=== PATIENT | female | born 1955 | race Caucasian/White ===

== ENCOUNTER → 2017-04-07 | Day surgery (SDC) | payer BC ==
[2017-03-30 07:36] VITALS: Ht 175.3 cm; Wt 95.5 kg
--- NOTE | 2017-04-06 08:56 | History and Physical: Surg Cnt ---
History & Physical Date April 06, 2017. Chief Complaint sinus infections History of Present Illness The patient is a 61 year old female with complaints of chronic sinusitis, left antrochoanal polyp Additional History Hepatic Disease: No Endocrine Disorder: No Kidney Disease: No Hypertension: Yes Heart Disease: No Bleeding Tendencies: No Infectious Diseases: No Allergies Coded Allergies: Adhesives (Verified Allergy, Unknown, RASH, 03/30/17) NO KNOWN DRUG ALLERGIES (Verified Allergy, Unknown, ., 03/30/17) Home Medications Scheduled Fluoxetine (Prozac), 10 MG PO QAM Levothyroxine Sodium (Levothyroxine Sodium), 1 TAB PO QAM Lisinopril (Zestril), 20 MG PO HS Nadolol (Corgard), 80 MG PO QAM Scheduled PRN Tramadol (Ultram), 50 MG PO Q8H PRN for Pain Physical Examination Skin: warm/dry, no rash Eyes: normal inspection, EOMI, sclerae normal ENT: normal ENT inspection, pharynx normal, + pertinent finding (left antochoanal polyp and other polyps) Head: normocephalic, atraumatic Neck: supple, no adenopathy, trachea midline Respiratory/Chest: lungs clear, normal breath sounds, no respiratory distress Cardiovascular: regular rate, rhythm, no edema, no murmur Abdomen / GI: normal bowel sounds, non tender Back: normal inspection Extremities: normal inspection, normal range of motion Neurologic/Psych: no motor/sensory deficits, alert, normal reflexes, oriented x 3 Diagnosis chronic sinusitis, left antrochoanal polyp Plan of Treatment endoscopic sinus surgery
[~2017-04-07] VITALS: Ht 175.3 cm; Wt 95.5 kg
[~2017-04-07] MED LIST: ATROPINE SULFATE 0.1 MG/ML 5ML SYR IV PRN; ATROPINE SULFATE 1MG/2.5ML SYR ONE; BACITRACIN OINT 15 GM TUBE ONE; CEFAZOLIN 2000 MG/60 ML D5W IV SCH; CHECK SCOPOLAMINE PATCH PLACEMENT SCH; DEXAMETHASONE SOD INJ 4 MG/ML VIAL ONE; EpHEDrine SULFATE INJ 50 MG/ML AMP IV PRN; EpHEDrine SULFATE INJ 50 MG/ML AMP ONE; EpINEphrine INJ 1MG/ML AMP 1 MG/ML AMP ONE; FENTANYL CITRATE INJ 50 MCG/1 ML 2 ML VIAL ONE; FLUMAZENIL 0.1 MG/1 ML 10 ML VIAL IV PRN; FLUO10CA48 PO; GELATIN SPONGE 12-7MM ONE; HYDROmorphone INJ 2 MG/ML SYR/VIAL IV PRN; LABETALOL HCL IV 5 MG/ML 20ML IV PRN; LACTATED RINGER'S 1000ML 1,000 ML IV SCH; LEVO50TA6 PO; LIDO 2%/EPINEPHRINE 1:100000 20 ML VIAL INFIL ONE; LIDOCAINE 4% MPF SOAK 5 ML = 1 DOSE TOP ONE; LIDOCAINE HCL 2% 2 ML VIAL (20MG/ML) ONE; LISI-725 PO; MEPERIDINE HCL 25 MG/ML CARP IV PRN; MIDAZOLAM HCL 1 MG/ML 2ML VIAL ONE; NADO80TA PO; NALOXONE HCL 0.4 MG/1 ML VIAL/CARP IV PRN; ONDANSETRON INJ 2 MG/ML 2 ML VIAL IV PRN; ONDANSETRON INJ 2 MG/ML 2 ML VIAL ONE; OXYCODONE/ACETAMINOPHEN 5-325 TAB PO PRN; OXYMETAZOLINE HCL 0.05% NA SPR 15 ML BTL SCH; PHENYLEPHRINE 100MCG/ML 5ML SYR IV PRN; PROPOFOL IV EMULSION 10 MG/ML 20 ML VIAL IV ONE; SCOPOLAMINE 1.5 MG TDSY TD ONE; SODIUM CHLORIDE 0.9% 1000ML 1,000 ML IV SCH; TRAM-10 PO
--- NOTE | 2017-04-07 08:51 | History & Physical Bridge Note ---
H&P Re-Evaluation Bridge Note: I have examined the patient, reviewed the History & Physical and in the interval since the performance of the History & Physical I have noted the following changes of clinical significance: No changes noted
[2017-04-07] MEDS: FENTANYL CITRATE INJ 50 MCG/1 ML 2 ML VIAL IV PRN ×2 (10:43→10:52)
--- NOTE | 2017-04-07 10:43 | Discharge Instructions-SurgCtr ---
Discharge Instructions Date of Service April 07, 2017. Visit Reason for Visit: Chronic Sinusitis, Left Antrochoanal Polyp;Preop Discharge Discharge Diagnosis / Problem: same Discharge Goals Goal(s): Improve disease control Activity Recommendations Activity Limitations: resume your previous activity Anesthesia . Post Anesthesia Instructions: If you have had General Anesthesia or IV Sedation: * Do not drive today. * Resume driving when surgeon permits. * Do not make important decisions or sign legal documents today. * Call surgeon for: 1. Temperature elevations greater than 101 degrees F. 2. Uncontrollable pain. 3. Excessive bleeding. 4. Persistent nausea and vomiting. 5. Medication intolerance (nausea, vomiting or rash). * For nausea and vomiting use only clear liquids such as: tea, soda, bouillon until nausea subsides, then gradually increase diet as tolerated. * If you have any concerns or questions, call your surgeon's office. If physician is unavailable and it is an emergency, call 911 or go to the nearest emergency room. . Instructions / Follow-Up Instructions / Follow-Up ACTIVITY RECOMMENDATIONS: * Being up and around is good, but no strenuous activity, heavy lifting or physical exertion for one week. * Keep your head elevated 30 degrees when lying down or sleeping. * Do not blow your nose for 48 hours, sniff back instead. * Avoid hot showers. OVER THE COUNTER MEDICATIONS: * You may use Tylenol * Avoid aspirin or aspirin containing products, e.g. as they may increase bleeding. SPECIAL CARE INSTRUCTIONS: * Expect to have bloody drainage from your nose and/or down your throat for one to three days. Change drip pad as needed. * Begin irrigating your nose with saline solution today, at least six to ten times per day and sniff back to help remove old clots or crust. * You may experience nasal and facial congestion, pain and pressure, this is normal. * Please call with any significant and/or progressive pain, redness, swelling around the eyes, visual changes, fever of 101.5 degrees F, active bleeding or any problems or concerns. * If active bleeding occurs, spray the nose three times at one minute intervals with Afrin spray and call or cell phone: . If unable to reach the doctor, go to the nearest Emergency Department. Special Diet: * Avoid extremely hot fluids. FOLLOW UP VISIT: Follow-up Visit with Dr. Concepcion If not already scheduled, please call to schedule. Diet Recommendations Home Diet: no limitations Procedures Procedures Performed: Endoscopic Sinus Surgery, Endoscopic Septoplasty, Right & Left Frontal Sinus, Right & Left Maxillary Sinus, Right & Left Total Ethmoidectomies Pending Studies Studies pending at discharge: no Medical Emergencies . Who to Call and When: Medical Emergencies: If at any time you feel your situation is an emergency, please call 911 immediately. . Non-Emergent Contact Non-Emergency issues call your: Primary Care Provider . . "Provider Documentation" section prepared by Ngoc Concepcion. . [place] Drug Monitoring Program Search Results: no issues identified
--- NOTE | 2017-04-07 11:15 | Anesthesia Progress Nt - [facility] ---
Anesthesia Post Op Note Date & Time April 07, 2017 at 11:16 Vital Signs Pain Intensity: 2 Vital Signs Past 12 Hours Date Time Temp Pulse Resp B/P Pulse Ox O2 Delivery O2 Flow Rate FiO2 04/07/17 11:11 57 7 96 04/07/17 11:11 57 7 04/07/17 11:10 137/89 04/07/17 11:10 37.0 57 16 137/89 95 Room Air 04/07/17 11:08 57 6 04/07/17 11:08 58 6 95 04/07/17 11:07 60 12 92 04/07/17 11:07 61 12 04/07/17 11:05 134/94 04/07/17 11:02 60 13 95 04/07/17 11:02 60 13 04/07/17 11:01 62 12 95 04/07/17 11:01 62 12 04/07/17 11:00 134/77 04/07/17 10:58 61 14 04/07/17 10:58 61 14 95 04/07/17 10:57 62 19 04/07/17 10:57 62 19 95 04/07/17 10:56 62 14 04/07/17 10:56 62 14 96 04/07/17 10:55 133/83 04/07/17 10:53 63 15 96 04/07/17 10:53 63 15 04/07/17 10:52 59 11 04/07/17 10:52 60 11 97 04/07/17 10:50 142/90 04/07/17 10:47 61 12 100 04/07/17 10:47 62 12 04/07/17 10:46 59 12 99 04/07/17 10:46 59 12 04/07/17 10:45 129/85 04/07/17 10:41 62 12 04/07/17 10:41 62 12 98 04/07/17 10:40 134/91 04/07/17 10:36 63 15 04/07/17 10:36 63 15 98 04/07/17 10:35 126/63 04/07/17 10:32 63 15 04/07/17 10:32 63 15 97 04/07/17 10:31 65 19 97 04/07/17 10:31 65 19 04/07/17 10:30 128/84 04/07/17 10:27 122/88 04/07/17 10:26 36.3 65 16 122/88 99 Mask 6 04/07/17 10:26 66 97 04/07/17 10:26 66 04/07/17 07:37 36.6 55 16 118/83 97 Room Air Notes Mental Status: alert / awake / arousable, participated in evaluation Pt Amnestic to Procedure: Yes Nausea / Vomiting: adequately controlled Pain: adequately controlled Airway Patency, RR, SpO2: stable & adequate BP & HR: stable & adequate Hydration State: stable & adequate Anesthetic Complications: no major complications apparent
[2017-04-07 11:26] VITALS: TEMP 36.5
--- NOTE | 2017-04-07 11:47 | OPERATIVE REPORT ---
DATE OF OPERATION: 04/07/2017 PREOPERATIVE DIAGNOSIS: Chronic sinusitis, septal deviation. POSTOPERATIVE DIAGNOSIS: Same. PROCEDURE: Septoplasty with endoscopic sinus surgery with right and left frontal, right and left total ethmoid and right and left maxillary sinus antrostomy. SURGEON: Dr. Concepcion. ANESTHESIA: General LMA. COMPLICATIONS: None. BLOOD LOSS: 75 mL. HISTORY OF PRESENT ILLNESS: A 61-year-old lady with large antrochoanal polyps and opacified maxillary and ethmoid sinuses and frontal sinus mucosal thickening. OPERATION AND FINDINGS: PROCEDURE: The patient brought to the operating room and placed in supine position. General endotracheal anesthesia was induced, prepped and draped in the usual sterile manner. The nose was decongested using topical cottonoids with a solution of 4 mL of 4% Xylocaine with 1 mL of adrenalin. Injection of 2% Xylocaine with 1:100,000 strength epinephrine was also used. Rexante, LLCLAB device was calibrated and used for the entire procedure. The right nasofrontal duct was cannulated with guidewire and dilated using the 6 mm balloon. The guidewire was left in place as a marker. The frontal sinusotomy was performed by removing the anterior wall, then the posterior wall of the agger nasi cell following the guidewire superiorly widely opening up the nasofrontal duct by removing the posterior and superior wall of the agger nasi cell, redilating the nasofrontal duct and leaving the nasofrontal duct widely opened to 6 mm. The total ethmoidectomy was performed with the shaver coupled with the BrainLAB device. The bullae ethmoidalis was opened. The ground lamella was penetrated and the posterior ethmoid air cells were opened. The posterior most ethmoid air cell was identified with the BrainLAB device and also delineating the skull base and lamina papyracea following these structures anteriorly exonerating all the posterior and then all the anterior ethmoid air cells which were filled with polypoid mucosa and fungal mucin opening these ethmoid air cells up to the previously dilated nasofrontal duct. Maxillary sinus was opened using the shaver opening up a large Fontanella because of polyps and also because thick solid fungal mucin in the right maxillary sinus. The fungal mucin had to be cleared out using various instruments including the right angle pick, the Blakesley forceps, the suction and the curette. In this manner, the entire fungus ball was removed and sent for culture and pathology. The maxillary sinus was opened with the shaver coupled with the Tivix device opening it up superiorly and posteriorly. The Propel stents were placed. The left frontal sinusotomy, total ethmoidectomy and maxillary sinus antrostomy were performed in similar manner. Again, there was thick mucin in the left maxillary sinus. Also, there was a large left antrochoanal polyp which was excised and sent to pathology. The endoscopic septoplasty was performed removing a large bony cartilaginous spur projecting to the left. The incision was made over the spur using the 15 blade. Superior inferior tunnels were elevated and then bilateral posterior tunnels were elevated, isolating the spur which was fractured superiorly and then removed. The mucoperichondrium was packed back in the midline with a single piece of Gelfoam on the left side. The patient tolerated the procedure well and was taken to recovery area in satisfactory condition. I attest to the content of the Intraoperative Record and any orders documented therein. Any exceptions are noted below. GARTH
[2017-04-07 12:06] VITALS: BP 135/86; PULSE 55; O2SAT 95
== END | disposition home or self-care (01) ==
LOC: X.SURG 07:31
PROVIDERS: ATTEND Otolaryngology
DX: J32.9 Chronic sinusitis, unspecified (principal); J34.2 Deviated nasal septum; J33.8 Other polyp of sinus